=== PATIENT | male | born 1935 | race Caucasian/White ===

== ENCOUNTER 2017-08-05 07:50 | Emergency (ER) | payer OTHER ==
[~2017-08-05] VITALS: Ht 177.8 cm; Wt 72.6 kg
[2017-08-05 07:50] VITALS: BP 0/0
[~2017-08-05 07:50] MED LIST: ALBU0.084 NEB; ALBUAER3 IN; AMIO200T33 PO; ATO40T PO; CLON0.1T PO; FUR20T PO; GUAI200T2 PO; LEVO250T45 PO; LORA-622 PO; LORA1TAB12 PO; MET25T PO; PANT40TA2 PO; TAMS0.4C36 PO; TIOTCAP INH; WARF2TAB55 PO
== END 2017-08-05 13:40 | disposition expired ==
LOC: ER 07:50
DX: I46.9 Cardiac arrest, cause unspecified (principal); I48.91 Unspecified atrial fibrillation; J96.20 Acute and chronic respiratory failure, unspecified whether with hypoxia or hypercapnia; J44.9 Chronic obstructive pulmonary disease, unspecified; E78.5 Hyperlipidemia, unspecified; I10 Essential (primary) hypertension; I25.2 Old myocardial infarction; Z79.899 Other long term (current) drug therapy; Z88.2 Allergy status to sulfonamides; Z88.1 Allergy status to other antibiotic agents; Z88.8 Allergy status to other drugs, medicaments and biological substances
CPT/HCPCS: 82962; 92950